=== PATIENT | male | born 1960 | race Caucasian/White ===

== ENCOUNTER 2024-02-13 18:22 | Emergency (ER) | payer OTHER | END 2024-02-13 18:52 | disposition home or self-care (01) | LOC: MADERS 18:22 | DX: T88.9XXA Complication of surgical and medical care, unspecified, initial encounter (principal); I10 Essential (primary) hypertension; K21.9 Gastro-esophageal reflux disease without esophagitis; E11.9 Type 2 diabetes mellitus without complications; E78.5 Hyperlipidemia, unspecified; D64.9 Anemia, unspecified | CPT/HCPCS: 99283 ==

== ENCOUNTER 2024-04-14 14:09 | Emergency (ER) | payer OTHER ==
[2024-04-14] MEDS ORDERED: Cephalexin 500 MG CAP ONE (14:38)
== END 2024-04-14 15:00 | disposition home or self-care (01) ==
LOC: MADERS 14:09
DX: E11.621 Type 2 diabetes mellitus with foot ulcer (principal); L03.115 Cellulitis of right lower limb; I10 Essential (primary) hypertension
CPT/HCPCS: 99283